=== PATIENT | female | born 1955 | race Caucasian/White ===

== ENCOUNTER 2022-03-02 04:23 | Outpatient (CLI) | payer MEDICAID, SELFPAY ==
[2022-03-02 08:28] LABS: Abs Immature Grans 0.04 10^3/uL (0.0-0.06); Absolute Basophil Count 0.04 10^3/uL (0.0-0.2); Absolute Eosinophil Count 0.09 10^3/uL (0.0-0.7); Absolute Lymphocyte Count 1.33 10^3/uL (1.2-3.4); Absolute Monocyte Count 0.73 10^3/uL (0.1-0.8); Absolute Neutrophil Count 6.04 10^3/uL (1.2-6.7); Basophils % 0.5; Eosinophils % 1.1; HCT 36.2 % (36.0-46.0); HGB 11.9 g/dL (11.2-15.7); Immature Grans % 0.5; Lymphocytes % 16.1; MCH 30.3 pg (27.0-33.0); MCHC 32.9 % (32.0-36.0); MCV 92 fL (80-95); MPV 11.2 fL (8.0-11.0); Monocytes % 8.8; Platelet Count 320 10^3/uL (130-400); RBC 3.93 10^6/uL (3.93-5.22); RDW 14.1 % (11.7-14.6); RDW-SD 48.1 fL; WBC 8.27 10^3/uL (4.4-10.8)
[2022-03-02 09:02] LABS: ALT 61 U/L (14-59); AST 67 U/L (15-37); Albumin 2.7 g/dL (3.4-5.0); Alkaline Phosphatase 278 U/L (46-116); Anion Gap 11.9 mmol/L (3-11); BUN 47 mg/dL (7-18); Bilirubin, Total 0.3 mg/dL (0.2-1.0); CO2 30.1 mmol/L (21.0-32.0); CREATININE 1.7 mg/dL (0.55-1.02); Chloride 97 mmol/L (98-107); Estimated GFR 30.26 (mL/min/1.73m2); FREE T4 1.93 ng/dL (0.76-1.46); Glucose 130 mg/dL (74-106); Magnesium 2.2 mg/dL (1.8-2.4); Sodium 139 mmol/L (136-145); TSH 0.39 uIU/mL (0.36-3.74); Total Protein 7.8 g/dL (6.4-8.2)
== END 2022-03-02 04:24 | disposition home or self-care (01) ==
LOC: LBO 04:23
PROVIDERS: PCP Family Medicine; Visit Provider Internal Medicine Medical Oncology
DX: C34.91 Malignant neoplasm of unspecified part of right bronchus or lung (principal); C79.51 Secondary malignant neoplasm of bone
CPT/HCPCS: 36415; 80053; 83735; 84439; 84443; 85025

== ENCOUNTER 2022-03-24 03:07 | Outpatient (CLI) | payer MEDICAID, SELFPAY ==
[2022-03-24 08:40] LABS: Abs Immature Grans 0.05 10^3/uL (0.0-0.06); Absolute Basophil Count 0.08 10^3/uL (0.0-0.2); Absolute Eosinophil Count 0.08 10^3/uL (0.0-0.7); Absolute Lymphocyte Count 1.55 10^3/uL (1.2-3.4); Absolute Monocyte Count 0.84 10^3/uL (0.1-0.8); Absolute Neutrophil Count 5.11 10^3/uL (1.2-6.7); Immature Grans % 0.6; Lymphocytes % 20.1; MCH 29.7 pg (27.0-33.0); MCHC 31.3 % (32.0-36.0); MCV 95 fL (80-95); MPV 10.7 fL (8.0-11.0); Monocytes % 10.9; Neutrophils % 66.4; Platelet Count 301 10^3/uL (130-400); RBC 3.37 10^6/uL (3.93-5.22); RDW-SD 54.3 fL; WBC 7.71 10^3/uL (4.4-10.8)
[2022-03-24 08:59] LABS: ALT 28 U/L (14-59); AST 34 U/L (15-37); Albumin 2.9 g/dL (3.4-5.0); Alkaline Phosphatase 145 U/L (46-116); Anion Gap 8.6 mmol/L (3-11); BUN 50 mg/dL (7-18); Bilirubin, Total 0.2 mg/dL (0.2-1.0); CO2 31.4 mmol/L (21.0-32.0); CREATININE 1.2 mg/dL (0.55-1.02); Calcium 8.9 mg/dL (8.5-10.1); Chloride 97 mmol/L (98-107); Estimated GFR 45.23 (mL/min/1.73m2); FREE T4 1.56 ng/dL (0.76-1.46); Glucose 116 mg/dL (74-106); Magnesium 1.9 mg/dL (1.8-2.4); Potassium 3.4 mmol/L (3.5-5.1); Sodium 137 mmol/L (136-145); TSH 0.67 uIU/mL (0.36-3.74); Total Protein 7.3 g/dL (6.4-8.2)
== END 2022-03-24 03:08 | disposition home or self-care (01) ==
LOC: LBO 03:08
PROVIDERS: PCP Family Medicine; Visit Provider Internal Medicine Medical Oncology
DX: C34.91 Malignant neoplasm of unspecified part of right bronchus or lung (principal); C79.51 Secondary malignant neoplasm of bone; R94.6 Abnormal results of thyroid function studies
CPT/HCPCS: 36415; 80053; 83735; 84439; 84443; 85025

== ENCOUNTER 2022-04-13 03:58 | Outpatient (CLI) | payer MEDICAID, SELFPAY ==
[2022-04-13 09:23] LABS: Abs Immature Grans 0.03 10^3/uL (0.0-0.06); Absolute Basophil Count 0.04 10^3/uL (0.0-0.2); Absolute Eosinophil Count 0.02 10^3/uL (0.0-0.7); Absolute Lymphocyte Count 1.31 10^3/uL (1.2-3.4); Absolute Monocyte Count 0.58 10^3/uL (0.1-0.8); Absolute Neutrophil Count 4.66 10^3/uL (1.2-6.7); Basophils % 0.6; Eosinophils % 0.3; HCT 35.1 % (36.0-46.0); HGB 11.3 g/dL (11.2-15.7); Immature Grans % 0.5; Lymphocytes % 19.7; MCH 30.3 pg (27.0-33.0); MCHC 32.2 % (32.0-36.0); MCV 94 fL (80-95); MPV 9.9 fL (8.0-11.0); Monocytes % 8.7; Neutrophils % 70.2; Platelet Count 388 10^3/uL (130-400); RBC 3.73 10^6/uL (3.93-5.22); RDW 17.3 % (11.7-14.6); RDW-SD 59.7 fL; WBC 6.64 10^3/uL (4.4-10.8)
[2022-04-13 09:47] LABS: ALT 23 U/L (14-59); AST 20 U/L (15-37); Alkaline Phosphatase 189 U/L (46-116); Anion Gap 7.7 mmol/L (3-11); BUN 23 mg/dL (7-18); Bilirubin, Total 0.4 mg/dL (0.2-1.0); CO2 34.3 mmol/L (21.0-32.0); CREATININE 1.1 mg/dL (0.55-1.02); Calcium 9.3 mg/dL (8.5-10.1); Chloride 95 mmol/L (98-107); Estimated GFR 50.01 (mL/min/1.73m2); FREE T4 1.63 ng/dL (0.76-1.46); Glucose 165 mg/dL (74-106); Magnesium 1.6 mg/dL (1.8-2.4); Potassium 3.1 mmol/L (3.5-5.1); Sodium 137 mmol/L (136-145); TSH 0.96 uIU/mL (0.36-3.74); Total Protein 7.8 g/dL (6.4-8.2)
== END 2022-04-13 03:59 | disposition home or self-care (01) ==
LOC: LBO 03:59
PROVIDERS: PCP Family Medicine; Visit Provider Internal Medicine Medical Oncology
DX: C34.91 Malignant neoplasm of unspecified part of right bronchus or lung (principal); C79.51 Secondary malignant neoplasm of bone
CPT/HCPCS: 36415; 80053; 83735; 84439; 84443; 85025